=== PATIENT | male | born 1950 | race Caucasian/White ===

== ENCOUNTER 2017-11-14 10:04 | Day surgery (SDC) | payer MEDICARE ==
[2017-11-09 14:43] VITALS: BMI 28.7
[~2017-11-14 10:04] MED LIST: LACTATED RINGERS 1,000 ML IV SCH; LIDOCAINE 1% 20 ML VIAL (10MG/ML) FOR IV START INTRADERMA PRN; MIDAZOLAM 2 MG/2 ML VIAL IV PRN
[2017-11-14 11:04] VITALS: RESP 18; TEMP 97
[2017-11-14] MEDS ORDERED: LACTATED RINGERS 1,000 ML IV ONE (11:05)
[2017-11-14] MEDS ORDERED: LIDOCAINE 1% INJ 10MG/ML (20 ML MDV) ONE (11:54)
[2017-11-14] MEDS ORDERED: PROPOFOL 10 MG/ML 20 ML VIAL IV ONE (11:54)
--- NOTE | 2017-11-14 12:25 | P.PCN ---
Date of Procedure: 11/14/17 Procedure(s) Performed: Procedure: Total colonoscopy. Preoperative diagnosis: Screening for neoplasia, patient has history of polyps. Postoperative diagnosis: Diverticulosis with no evidence of acute diverticulitis , strictures, polyps or cancer. Preparation: HalfLytely prep. Sedation: Was provided by anesthesia. Brief clinical history: The patient is a 67-year-old male who is scheduled for this evaluation for screening for neoplasia age being his risk factor as well as history of polyps.. He has no abdominal complaints, bleeding or anemia. No family history of colon cancer. His last exam was in May 2014 and several adenomatous polyps were removed. Procedure: With the patient on his left lateral decubitus position and after informed consent and adequate sedation, the perianal area was inspected and it did not show any fissures or fistulas. There were no masses felt on digital rectal examination. The Olympus CFQ 160L video colonoscope was then inserted in the rectum in the usual fashion and advanced to the cecum. The mucosa appeared healthy. No polyps or tumors were seen. There was several diverticular orifices seen scattered in the sigmoid and left side and occasionally around the hepatic flexure and on the right side as previously described with no evidence of acute diverticulitis or strictures. I retroflexed the endoscope in the rectum before the endoscope was withdrawn. The patient tolerated the procedure well. Plan: The patient was reassured. He will follow-up with you as planned and I recommended repeat exam in 5 years.
[2017-11-14 12:45] VITALS: BP 14/847; PULSE 64
== END 2017-11-14 13:22 | disposition home or self-care (01) ==
LOC: ORWHC2ENDO 10:04
DX: Z12.11 Encounter for screening for malignant neoplasm of colon (principal); K57.30 Diverticulosis of large intestine without perforation or abscess without bleeding; Z86.010 Personal history of colon polyps
CPT/HCPCS: J2001; J2704; G0105

== ENCOUNTER 2022-11-02 07:58 | Emergency (ER) | payer MEDICARE ==
[2022-11-02] MEDS ORDERED: BACITRACIN OINT 1 EACH PACKET TOPICAL ONE (08:25)
--- NOTE | 2022-11-02 08:28 | ED ---
Fall HPI - General Chief Complaint: Fall Stated Complaint: Fall Time Seen by Provider: 11/02/22 08:09 Source: patient Mode of arrival: ambulatory - History of Present Illness Initial Comments: This is a nontoxic-appearing 72-year-old male that presents ambulatory with complaints of tripping while going down the steps carrying a laundry basket around 5:30 falling onto his right shoulder. Patient complaining of right shoulder pain along with left hand pain. Denies any loss of consciousness. Does not take any blood thinners. Denies any headache, neck pain or other injuries. MD Complaint: fall -: hour(s) (3) Fall From: standing, down stairs (#) (12) Fall Witnessed: no Place Fall Occurred: home Loss of Consciousness: none Prolonged Down Time?: no Symptoms Prior to Fall: none Location - Extremities: Left: Hand, Right: Shoulder Severity scale (1-10): 6 Context: tripped/slipped Associated Symptoms: denies - Related Data Previous Rx's Medication Instructions Recorded Ibuprofen [Motrin] 600 mg PO Q8HR PRN #30 tab 11/02/22 Allergies Allergy/AdvReac Type Severity Reaction Status Date / Time No Known Allergies Allergy Verified 11/02/22 08:03 Review of Systems ROS Statement: Those systems with pertinent positive or pertinent negative responses have been documented in the HPI. ROS Other: All systems not noted in ROS Statement are negative. Past Medical History Past Medical History: Hypertension History of Any Multi-Drug Resistant Organisms: None Reported Past Surgical History: Orthopedic Surgery Additional Past Surgical History / Comment(s): Lt knee arthroscopy. COLONOSCOPY Past Anesthesia/Blood Transfusion Reactions: No Reported Reaction Past Psychological History: No Psychological Hx Reported Smoking Status: Never smoker Past Alcohol Use History: Occasional Past Drug Use History: None Reported - Past Family History Father Family Medical History: Cancer General Exam Limitations: no limitations General appearance: alert, in no apparent distress Head exam: Present: atraumatic, normocephalic, normal inspection Eye exam: Present: normal appearance. Absent: scleral icterus, conjunctival injection, periorbital swelling Neck exam: Present: full ROM. Absent: tenderness, meningismus Respiratory exam: Absent: respiratory distress, accessory muscle use Cardiovascular Exam: Present: regular rate GI/Abdominal exam: Present: soft Right Shoulder Exam: Present: tenderness, tenderness over AC joint. Absent: full ROM, swelling, abrasion, laceration, ecchymosis, deformity, crepitus, dislocation, erythema Upper Arm exam: Absent: tenderness, swelling Elbow exam: Present: full ROM. Absent: tenderness, swelling Forearm Wrist exam: Present: full ROM. Absent: tenderness, swelling Hand Wrist exam: Present: full ROM. Absent: tenderness, swelling Neurosensory exam: Present: radial nerve intact, ulnar nerve intact, median nerve intact Vascular: Present: normal capillary refill, radial pulse. Absent: vascular compromise Left Shoulder Exam: Present: full ROM. Absent: tenderness Upper Arm exam: Present: full ROM. Absent: tenderness Elbow exam: Present: full ROM. Absent: tenderness Forearm Wrist exam: Present: full ROM. Absent: tenderness Hand Wrist exam: Present: full ROM, tenderness, swelling. Absent: abrasion, laceration, ecchymosis, deformity, crepitus, dislocation, erythema, amputation, nail avulsion, subungual hematoma Neurosensory exam: Present: radial nerve intact, ulnar nerve intact, median nerve intact Vascular: Present: normal capillary refill. Absent: vascular compromise Neurological exam: Present: alert, oriented X3, CN II-XII intact, normal gait Expanded Patient oriented to: Present: person, place, time Speech: Present: fluid speech Cranial nerves: EOM's Intact: Normal, Gag Reflex: Normal, Tongue Deviation: Normal Eye Response: (4) open spontaneously Motor Response: (6) obeys commands Verbal Response: (5) oriented [place] Total: 15 Psychiatric exam: Present: normal affect, normal mood Skin exam: Present: warm, dry, normal color. Absent: cyanosis, diaphoretic, pallor Course Vital Signs 11/02/22 11/02/22 08:01 09:49 Temperature 98.4 F 98.1 F Pulse Rate 95 89 Respiratory 20 18 Rate Blood Pressure 138/84 129/86 O2 Sat by Pulse 99 99 Oximetry Medical Decision Making - Medical Decision Making Was pt. sent in by a medical professional or institution (FLORIN Bravo, BUNG DROPPER, urgent care, hospital, or fdc...) When possible be specific @ -No Did you speak to anyone other than the patient for history (EMS, parent, family, police, friend...)? What history was obtained from this source @ -No Did you review nursing and triage notes (agree or disagree)? Why? @ -I reviewed and agree with nursing and triage notes Were old charts reviewed (outside hosp., previous admission, EMS record, old EKG, old radiological studies, urgent care reports/EKG's, fdc records)? Report findings @ -No old charts were reviewed Differential Diagnosis (chest pain, altered mental status, abdominal pain women, abdominal pain men, vaginal bleeding, weakness, fever, dyspnea, syncope, headache, dizziness, GI bleed, back pain, seizure, CVA, palpatations, mental health, musculoskeletal)? @ -Humeral fracture, dislocation, clavicle fracture, right hand contusion, fracture EKG interpreted by me (3pts min.). @ -n/a X-rays interpreted by me (1pt min.). @ -X-ray of the right shoulder interpreted by me shows a widened AC joint. No evidence of fracture or dislocation. X-ray of the left hand interpreted by me shows no evidence of fracture or dislocation. Radiologist's interpretation right shoulder shows some capsular swelling and mild overlying soft tissue sw elling at the AC joint. No abnormal offset at the AC joint to suggest a adilene separation. Left hand x-ray shows scattered osteoarthritic change such as at the base of the thumb and third MCP joint. No acute osseous abnormality seen. CT interpreted by me (1pt min.). @ -None done U/S interpreted by me (1pt. min.). @ -None done What testing was considered but not performed or refused? (CT, X-rays, U/S, labs)? Why? @ -CT of the brain and C-spine were considered however patient denies any headaches or neck pain. No blood thinners. CT was offered and patient declined What meds were considered but not given or refused? Why? @ -None Did you discuss the management of the patient with other professionals (professionals i.e. , PA, BUNG DROPPER, lab, RT, psych nurse, social media project manager, swing driver, teacher, credit risk review officer, case technician)? Give summary @ -No Was smoking cessation discussed for >3mins.? @ -No Was critical care preformed (if so, how long)? @ -No Were there social determinants of health that impacted care today? How? (Homelessness, low income, unemployed, alcoholism, drug addiction, transportation, low edu. Level, literacy, decrease access to med. care, assisted, rehab)? @ -No Was there de-escalation of care discussed even if they declined (Discuss DNR or withdrawal of care, Hospice)? DNR status @ -No What co-morbidities impacted this encounter? (DM, HTN, Smoking, COPD, CAD, Cancer, CVA, ARF, Chemo, Hep., AIDS, mental health diagnosis, sleep apnea, morbid obesity)? @ -Hypertension Was patient admitted / discharged? Hospital course, mention meds given and route, prescriptions, significant lab abnormalities, going to OR and other pertinent info. @ -Discharged. Patient tripped and fell carrying a laundry basket down stairs this morning. Complaining of left hand and right shoulder pain. Denies any loss of consciousness. No blood thinners. Denies any headache or neck pain. Ambulatory with steady gait. No focal neurological deficits. Patient does have a abrasion to his nose from his glasses, bacitracin dressing was applied. X- ray of the right shoulder interpreted by me shows a widened AC joint. No evidence of fracture or dislocation. X-ray of the left hand interpreted by me shows no evidence of fracture or dislocation. Radiologist's interpretation right shoulder shows some capsular swelling and mild overlying soft tissue swelling at the AC joint. No abnormal offset at the AC joint to suggest a adilene separation. Left hand x-ray shows scattered osteoarthritic change such as at the base of the thumb and third MCP joint. No acute osseous abnormality seen. Patient was offered pain medication and declined. He was given a shoulder immobilizer and directed to follow up with his primary care doctor and orthopedics this week. Tylenol and Motrin as needed for pain or discomfort. Case discussed with Dr. Sherwood. Undiagnosed new problem with uncertain prognosis? @ -No Drug Therapy requiring intensive monitoring for toxicity (Heparin, Nitro, Insulin, Cardizem)? @ -No Were any procedures done? @ -No Diagnosis/symptom? @ -Fall, internal derangement right shoulder, left hand sprain Acute, or Chronic, or Acute on Chronic? @ -Acute Uncomplicated (without systemic symptoms) or Complicated (systemic symptoms)? @ -Uncomplicated Side effects of treatment? @ -No Exacerbation, Progression, or Severe Exacerbation? @ -No Poses a threat to life or bodily function? How? (Chest pain, [place], [place], pneumonia, PE, COPD, DKA, ARF, appy, cholecystitis, CVA, Diverticulitis, Homicidal, Suicidal, threat to staff... and all critical care pts) @ -No Disposition Clinical Impression: Fall, Internal derangement of right shoulder, Hand pain, left Disposition: HOME SELF-CARE Condition: Good Instructions (If sedation given, give patient instructions): How to Use a Sling (ED), Hand Sprain (ED), Fall Prevention (ED), Shoulder Pain (ED) Additional Instructions: Tylenol and/or Motrin as needed for pain or discomfort. Wear the sling until seen by orthopedic doctor or primary care doctor this week. Return with any new or concerning symptoms. Prescriptions: Ibuprofen [Motrin] 600 mg PO Q8HR PRN #30 tab PRN Reason: Pain Is patient prescribed a controlled substance at d/c from ED?: No Referrals: Kevin Fine MD [STAFF PHYSICIAN] - 1-2 days Shahbaz Dunne DO [Doctor of Osteopathic Medicine] - 1-2 days Time of Disposition: 09:23
--- NOTE | 2022-11-02 09:11 | XR ---
EXAMINATION TYPE: XR shoulder complete 3 views RT, XR hand complete 3 views LT DATE OF EXAM: 11/02/2022 Comparison: None Clinical History: 72-year-old male with pain after fall Findings: Right shoulder: There is degenerative spurring at the AC joint. Some capsular hypertrophy and mild overlying soft tis devendra swelling at the AC joint. Subacromial space is preserved. No acute fracture, subluxation, or disl ocation seen. Left hand: Mild to moderate degenerative change. MCP joint. Mild at the first CMC joint. Also mild at the second MCP joint. No acute fracture, subluxation, dislocation is seen. Impression: 1. Right shoulder: Some capsular swelling and mild overlying soft tissue swelling at the AC joint. C orrelate with point tenderness. Findings suspected to represent a low-grade AC joint sprain. No abnor mal offset at the AC joint to suggest a adilene separation. 2. Left hand: Some scattered osteoarthritic change such as at the base of the thumb and third MCP sumeet nt. No acute osseous abnormality seen.
[2022-11-02 09:51] VITALS: BP 129/86; PULSE 89; RESP 18; TEMP 98.1
== END 2022-11-02 09:51 | disposition home or self-care (01) ==
LOC: EC 07:58 → SUPCPDRO 07:58 → EC 09:51
DX: S63.92XA Sprain of unspecified part of left wrist and hand, initial encounter (principal); M24.9 Joint derangement, unspecified; I10 Essential (primary) hypertension; W10.9XXA Fall (on) (from) unspecified stairs and steps, initial encounter; Y92.009 Unspecified place in unspecified non-institutional (private) residence as the place of occurrence of the external cause; Y93.01 Activity, walking, marching and hiking
CPT/HCPCS: 99284

== ENCOUNTER 2023-01-26 22:20 | Emergency (ER) | payer MEDICARE ==
[~2023-01-26 22:20] MED LIST changes: -LACTATED RINGERS 1,000 ML IV SCH; -LIDOCAINE 1% 20 ML VIAL (10MG/ML) FOR IV START INTRADERMA PRN; -MIDAZOLAM 2 MG/2 ML VIAL IV PRN; +fentaNYL (PF) 50 MCG/ML 2 ML AMP IVP PRN
[2023-01-26] MEDS ORDERED: fentaNYL (PF) 50 MCG/ML 2 ML AMP ONE (22:27)
[2023-01-26 22:39] VITALS: TEMP 98.2
[2023-01-26 23:39] VITALS: RESP 18
--- NOTE | 2023-01-26 23:44 | XR ---
EXAM: XR Right Ankle Complete, 3 or More Views CLINICAL HISTORY: ITS.REASON XR Reason: Fracture/dislocation TECHNIQUE: Frontal, lateral and oblique views of the right ankle. COMPARISON: No relevant prior studies available. FINDINGS: Bones/joints: Displaced bimalleolar fracture with disruption of the ankle mortise. No dislocation. Soft tissues: Generalized soft tissue swelling. IMPRESSION: Displaced bimalleolar fracture with disruption of the ankle mortise.
--- NOTE | 2023-01-26 23:47 | XR ---
EXAM: XR Right Foot Complete, 3 or More Views CLINICAL HISTORY: ITS.REASON XR Reason: Fracture/dislocation TECHNIQUE: Frontal, lateral and oblique views of the right foot. COMPARISON: No relevant prior studies available. FINDINGS: Bones/joints: Displaced bimalleolar fracture. No metatarsal fracture. No Lisfranc malalignment. Soft tissues: Unremarkable. No radiopaque foreign body. IMPRESSION: 1. No metatarsal fracture. No Lisfranc malalignment. 2. Displaced bimalleolar fracture.
[2023-01-26 23:49] LABS: Basophils % (A) 1 %; Eosinophils # (A) 0.2 k/uL (0-0.7); Eosinophils % (A) 3 %; HCT 42.6 % (39.0-53.0); HGB 14.9 gm/dL (13.0-17.5); Lymphocytes # (A) 1.8 k/uL (1.0-4.8); Lymphocytes % (A) 23 %; MCH 31.7 pg (25.0-35.0); MCHC 34.9 g/dL (31.0-37.0); MCV 90.9 fL (80.0-100.0); Mean Platelet Volume 7.4; Monocytes # (A) 0.6 k/uL (0-1.0); Monocytes % (A) 7 %; Neutrophils # (A) 5.2 k/uL (1.3-7.7); Neutrophils % (A) 65 %; Platelet Count 224 k/uL (150-450); RBC 4.69 m/uL (4.30-5.90); RDW 13.2 % (11.5-15.5); WBC 7.9 k/uL (3.8-10.6)
[2023-01-27] LABS: Partial Thromboplastin Time 25.9 sec (22.0-30.0); Prothrombin Time 10.4 sec (9.0-12.0)
[2023-01-27 00:05] LABS: ALT 17 U/L (4-49); AST 30 U/L (17-59); African American GFR (CKD) >90 (>60 ml/min/1.73 sqM); Albumin 4.5 g/dL (3.5-5.0); Alkaline Phosphatase 58 U/L (38-126); Anion Gap 11 mmol/L; Blood Urea Nitrogen 14 mg/dL (9-20); Calcium 8.6 mg/dL (8.4-10.2); Carbon Dioxide 24 mmol/L (22-30); Chloride 100 mmol/L (98-107); Glucose 113 mg/dL (74-99); Non-African American GFR(CKD) >90 (>60 ml/min/1.73 sqM); Potassium 3.8 mmol/L (3.5-5.1); Sodium 135 mmol/L (137-145); Total Bilirubin 0.6 mg/dL (0.2-1.3); Total Protein 7.7 g/dL (6.3-8.2)
--- NOTE | 2023-01-27 00:20 | ED ---
General Adult HPI - General Chief complaint: Extremity Injury, Lower Stated complaint: Fall, Right Ankle Injury Time Seen by Provider: 01/26/23 22:33 Source: EMS Mode of arrival: EMS - History of Present Illness Initial comments: This is a 72-year-old male that was brought into the emergency department by EMS for a ankle injury. The patient was drinking alcohol when he went home and noted that he rolled his ankle and looked down and noted that it was deformed. The patient attempted to put his ankle back in place by himself but was unsuccessful. The patient then called EMS for evaluation. During transport, the patient did receive fentanyl and the patient was resting in bed comfortably. On arrival, the patient was intoxicated but denied any other acute trauma or pain. - Related Data Previous Rx's Medication Instructions Recorded Ibuprofen [Motrin] 600 mg PO Q8HR PRN #30 tab 11/02/22 Allergies Allergy/AdvReac Type Severity Reaction Status Date / Time No Known Allergies Allergy Verified 01/26/23 22:39 Review of Systems ROS Statement: Those systems with pertinent positive or pertinent negative responses have been documented in the HPI. ROS Other: All systems not noted in ROS Statement are negative. Past Medical History Past Medical History: Hypertension History of Any Multi-Drug Resistant Organisms: None Reported Past Surgical History: Orthopedic Surgery Additional Past Surgical History / Comment(s): Lt knee arthroscopy. COLONOSCOPY Past Anesthesia/Blood Transfusion Reactions: No Reported Reaction Past Psychological History: No Psychological Hx Reported Smoking Status: Never smoker Past Alcohol Use History: Occasional Past Drug Use History: None Reported - Past Family History Father Family Medical History: Cancer General Exam Limitations: no limitations General appearance: alert, in no apparent distress, appears intoxicated Head exam: Present: atraumatic, normocephalic, normal inspection Eye exam: Present: normal appearance, PERRL Pupils: Present: normal accommodation ENT exam: Present: normal exam, normal oropharynx, mucous membranes moist Neck exam: Present: normal inspection, full ROM Respiratory exam: Present: normal lung sounds bilaterally Cardiovascular Exam: Present: regular rate, normal rhythm, normal heart sounds GI/Abdominal exam: Present: soft, normal bowel sounds Extremities exam: Present: other (Deformity noted to the right ankle with decreased range of motion secondary to pain) Neurological exam: Present: alert, oriented X3, CN II-XII intact Psychiatric exam: Present: normal affect, normal mood Skin exam: Present: warm, dry Course Vital Signs 01/26/23 01/26/23 22:36 23:38 Temperature 98.2 F Pulse Rate 71 71 Respiratory 20 18 Rate Blood Pressure 149/98 140/90 O2 Sat by Pulse 99 97 Oximetry Procedures - Orthopedic Fracture Reduction Fracture #1 Consent Obtained: verbal consent Side: right Fracture Reduction Location: tibia, fibula Analgesia: none Technique: traction/counter-traction Post Reduction X-rays Demonstrate: acceptable reduction Post-Reduction Neuro Exam: intact Post-Reduction Vascular Exam: intact Splint Applied: Yes Patient Tolerated Procedure: well - Orthopedic Splinting/Casting Injury #1 Side: right Lower Extremity Injury Location: ankle Lower Extremity Immobilizer: posterior splint, stirrup splint Medical Decision Making - Medical Decision Making Was pt. sent in by a medical professional or institution (, PA, STOCK SUPERVISOR, urgent care, hospital, or correction...) When possible be specific @ -No Did you speak to anyone other than the patient for history (EMS, parent, family, police, friend...)? What history was obtained from this source @ -Yes, EMS who stated that the patient was resting comfortably but did attempt to reduce the ankle himself at home. Did you review nursing and triage notes (agree or disagree)? Why? @ -I reviewed and agree with nursing and triage notes Were old charts reviewed (outside hosp., previous admission, EMS record, old EKG, old radiological studies, urgent care reports/EKG's, correction records)? Report findings @ -No old charts were reviewed Differential Diagnosis (chest pain, altered mental status, abdominal pain women, abdominal pain men, vaginal bleeding, weakness, fever, dyspnea, syncope, headache, dizziness, GI bleed, back pain, seizure, CVA, palpatations, mental health)? @ -Ankle dislocation, tibia fracture, fibula fracture EKG interpreted by me (3pts min.). @ -As above X-rays interpreted by me (1pt min.). @ -X-ray of the right ankle and right foot were obtained and were interpreted by myself that showed a bimalleolar fracture as well as a disruption of the ankle mortise. CT interpreted by me (1pt min.). @ -None done U/S interpreted by me (1pt. min.). @ -None done What testing was considered but not performed or refused? (CT, X-rays, U/S, labs)? Why? @ -None What meds were considered but not given or refused? Why? @ -None Did you discuss the management of the patient with other professionals (professionals i.e. DrNaomi, PA, STOCK SUPERVISOR, lab, RT, psych nurse, social media community manager, documentation billing clerk, teacher, code enforcement officer, casework supervisor)? Give summary @ -Yes, Dr. Barron, the orthopedic surgeon on-call was contacted regarding the pat ient and she recommended transfer to a higher level of care. [facility] was contacted and Dr. Deras accepted the patient as well as Dr. Lee in the emergency department. Was smoking cessation discussed for >3mins.? @ -No Was critical care preformed (if so, how long)? @ -No Were there social determinants of health that impacted care today? How? (Homelessness, low income, unemployed, alcoholism, drug addiction, transportation, low edu. Level, literacy, decrease access to med. care, [facility], rehab)? @ -No Was there de-escalation of care discussed even if they declined (Discuss DNR or withdrawal of care, Hospice)? DNR status @ -No What co-morbidities impacted this encounter? (DM, HTN, Smoking, COPD, CAD, Cancer, CVA, ARF, Chemo, Hep., AIDS, mental health diagnosis, sleep apnea, morbid obesity)? @ -Hypertension Was patient admitted / discharged? Hospital course, mention meds given and route, prescriptions, significant lab abnormalities, going to OR and other pertinent info. @ -The patient was seen and evaluated emergency department. Physical exam, the patient was resting in bed with an obvious deformity to the right ankle. While the patient was on the EMS stretcher, I did reduce the ankle immediately on arrival. The patient tolerated this procedure well. The patient did have a splint placed per the procedure note. The patient received pain medications in the emergency department and x-rays were obtained. X-ray showed a bimalleolar fracture with a disruption of the ankle mortise. Due to this, the orthopedic surgeon on-call here recommended that the patient be transferred to a high level of care. The patient was accepted by Dr. Lee and [place] at [facility]. The patient was agreeable to this and was transferred in stable condition. Undiagnosed new problem with uncertain prognosis? @ -No Drug Therapy requiring intensive monitoring for toxicity (Heparin, Nitro, Insulin, Cardizem)? @ -No Were any procedures done? @ -Yes, see above Diagnosis/symptom? @ -Right ankle bimalleolar fracture with disruption of the ankle mortise Acute, or Chronic, or Acute on Chronic? @ -Acute Uncomplicated (without systemic symptoms) or Complicated (systemic symptoms)? @ -Complicated Side effects of treatment? @ -No Exacerbation, Progression, or Severe Exacerbation? @ -No Poses a threat to life or bodily function? How? (Chest pain, [place], [place], pneumonia, PE, COPD, DKA, ARF, appy, cholecystitis, CVA, Diverticulitis, Homicidal, Suicidal, threat to staff... and all critical care pts) @ -No - Lab Data Result diagrams: 01/26/23 23:37 Lab Results 01/26/23 01/26/23 Range/Units 23:37 23:37 WBC 7.9 (3.8-10.6) k/uL RBC 4.69 (4.30-5.90) m/uL Hgb 14.9 (13.0-17.5) gm/dL Hct 42.6 (39.0-53.0) % MCV 90.9 (80.0-100.0) fL MCH 31.7 (25.0-35.0) pg MCHC 34.9 (31.0-37.0) g/dL RDW 13.2 (11.5-15.5) % Plt Count 224 (150-450) k/uL MPV 7.4 Neutrophils % 65 % Lymphocytes % 23 % Monocytes % 7 % Eosinophils % 3 % Basophils % 1 % Neutrophils # 5.2 (1.3-7.7) k/uL Lymphocytes # 1.8 (1.0-4.8) k/uL Monocytes # 0.6 (0-1.0) k/uL Eosinophils # 0.2 (0-0.7) k/uL Basophils # 0.0 (0-0.2) k/uL PT 10.4 (9.0-12.0) sec INR 1.0 (<1.2) APTT 25.9 (22.0-30.0) sec Disposition Clinical Impression: Ankle fracture, bimalleolar, closed Disposition: OTHER INSTITUTION NOT DEFINED Condition: Stable Is patient prescribed a controlled substance at d/c from ED?: No Referrals: Brandon Fine MD [Primary Care Provider] - 1-2 days Time of Disposition: 00:01 - Out of Hospital Transfer - Req. Specs Out of Hospital Transfer - Requested Specifics: Other Emergency Center ([facility])
[2023-01-27] MEDS ORDERED: HYDROmorphone 1 MG/ML 1 ML SYRINGE IM STA (00:31)
[2023-01-27 00:36] LABS: Alcohol 230 mg/dL
[2023-01-27 00:43] VITALS: BP 149/80; PULSE 74
== END 2023-01-27 00:43 | disposition other institution (70) ==
LOC: EC 22:20
DX: S82.841A Displaced bimalleolar fracture of right lower leg, initial encounter for closed fracture (principal); I10 Essential (primary) hypertension; X50.1XXA Overexertion from prolonged static or awkward postures, initial encounter
CPT/HCPCS: 99285 ×2; 27810 ×2; 96372 ×2; 36415; 80053; 83735; 85025; 85610; 85730; 73610; 73630; 96374; G0480; J3010; J1170; 80320

== ENCOUNTER 2023-09-23 11:20 | Day surgery (SDC) | payer MEDICARE ==
[2023-09-23] MEDS: LACTATED RINGERS 1,000 ML IV SCH (12:09)
[2023-09-23 12:16] VITALS: PULSE 72; TEMP 98.4
[2023-09-23] MEDS ORDERED: PROPOFOL 10 MG/ML 20 ML VIAL IV ONE (13:18)
--- NOTE | 2023-09-23 13:35 | P.PCN ---
Date of Procedure: 09/23/23 Procedure(s) Performed: BRIEF HISTORY: Patient is a 72-year-old pleasant white male scheduled for an elective colonoscopy as a part of screening for colon cancer/positive cologuard PROCEDURE PERFORMED: Colonoscopy snare polypectomy and Endo Clip placement. PREOPERATIVE DIAGNOSIS: Screening for colon cancer/positive cologuard. IV sedation per Anesthesia. PROCEDURE: After informed consent was obtained, the patient, was brought into the endoscopy unit. IV sedation was administered by Anesthesia under continuous monitoring. Digital rectal examination was normal. Initially the Olympus CF-160 flexible video colonoscope was then inserted in the rectum, gradually advanced into the cecum without any difficulty. Careful examination was performed as the scope was gradually being withdrawn. Ileocecal valve and the appendiceal orifice were visualized and appeared normal. Prep was excellent. Mucosa of the cecum, ascending colon, transverse colon, descending colon, sigmoid colon, and rectum appeared normal. proximal rectum there was a 3 mm and 6 mm polyp that was removed by cold snare polypectomy. Polypectomy was brisk oozing identified and hence an Endo Clip was placed.Retroflexion was performed in the rectum and no lesions were seen. The patient tolerated the procedure well. IMPRESSION: 3 mm and 6 mm proximal rectal polyp status post cold snare polypectomy followed by Endo Clip placement RECOMMENDATIONS: Findings of this examination were discussed with the patient as well as his family. He was advised to follow with the biopsy results. If the biopsy results and have a repeat colonoscopy in 5 years..
[2023-09-23 14:21] VITALS: BP 151/88; RESP 16
== END 2023-09-23 14:32 | disposition home or self-care (01) ==
LOC: ORWHC2ENDO 11:20
PROVIDERS: ATTEND Internal Medicine Gastroenterology
DX: D12.5 Benign neoplasm of sigmoid colon (principal); I10 Essential (primary) hypertension; Z85.46 Personal history of malignant neoplasm of prostate; Z86.010 Personal history of colon polyps; Z79.899 Other long term (current) drug therapy
CPT/HCPCS: 88305; 45385; J2704